=== PATIENT | male | born 1985 | race Caucasian/White ===

== ENCOUNTER 2019-07-03 09:05 | Emergency (ER) | payer OTHER ==
[~2019-07-03] VITALS: Ht 167.6 cm; Wt 81.6 kg
[2019-07-03] MEDS ORDERED: PERCOCET 5-3251 EACH PO (14:34)
== END 2019-07-03 14:47 | disposition home or self-care (01) ==
LOC: ER 09:05
DX: R10.31 Right lower quadrant pain (principal)